=== PATIENT | male | born 1975 | race Caucasian/White ===

== ENCOUNTER 2020-01-12 13:04 | Day surgery (SDC) | payer OTHER, SELFPAY ==
[2020-01-01 08:09] VITALS: BMI 31.4
[2020-01-12] VITALS (10 sets, daily range): BP systolic 98–126; BP diastolic 58–84; PULSE 89–98; RESP 10–20; TEMP 36.2; O2SAT 92–98; BMI 30.7
[2020-01-12] MEDS: LACTATED RINGERS 1,000 ML 100 ML IV (14:53)
[2020-01-12] MEDS: CEFAZOLIN 2 GM/100 ML FROZ.PIGGY IV (16:41)
--- NOTE | 2020-01-12 16:41 | PM.PREOP ---
Pre-operative Note Interval Note History & Physical reviewed/Exam performed by Physician: Yes Changes to H&P: No
--- NOTE | 2020-01-12 17:03 | SUR.OPER ---
Supine on padded OR bed, head on pillow, arms secured on padded arm boards at <90 degrees abduction, legs uncrossed, safety belt at thigh, gel pad under heels.
[2020-01-12] MEDS: BUPIVACAINE 0.5% (PF) VIAL 30 ML INJ (17:07)
--- NOTE | 2020-01-12 18:59 | PM.OP.1 ---
Operative Date/Time/Diagnoses Date of procedure: 01/12/20 Time of procedure: 19:00 Pre-op diagnosis: Bilateral inguinal hernias reducible Post-op diagnosis: same ( direct hernias) Procedure & Clinicians Procedure: bilateral repair with plug and patch technique Same procedure as scheduled: Yes Indications: patient with a symptomatic left inguinal hernia found also have a right inguinal hernia brought in for repair Surgeon: Anastacio Rivera Anesthesia Type: General Operative Notes Findings: very large hernia on the left side but both sides essentially had a floor that was blown out with preperitoneal fat sliding through. There was no evidence of an indirect hernia on either side. Closure Type: primary Specimen(s): none sent Prosthetic devices, grafts, tissues, transplants, or devices: Mesh Estimated Blood Loss (mL): 10 Blood products transfused: none Procedure in detail: the patient was placed supine on the operating room table and underwent general LMA anesthesia. He was prepped and draped in the usual fashion. Local anesthetic was infiltrated in the left groin overlying the internal ring. Transverse incision is made and carried down level the external oblique. The external oblique was opened parallel with its fibers through the external ring. Cord structures were elevated. The floor was markedly attenuated and essentially gone with preperitoneal fat protruding up. I opened the cremaster proximally and could identify no indirect sac. It was closed with a 3 0 Vicryl. The floor was opened and the preperitoneal fat reduced off of the thinned out layer. Large plug was placed in the defect and tacked into place with interrupted 0 Ethibond suture. I closed the floor over this eliminating the thinned out redundant tissue. This was done with Ethibond suture suturing the medial transversalis to the ileopubic tract. A patch was then placed across the floor and tacked at the pubic tubercle, the posterior lamella the anterior rectus sheath, the ileo inguinal ligament and superior and lateral the cord. The opening was enlarged slightly to allow the mesh to lay flat and not constrict the cord. The external oblique was closed with a running 3 0 Vicryl. The subcu was closed with interrupted 3 0 Vicryl and the skin was closed running 4 0 Vicryl subcuticular stitch and Steri-Strips. A mirror incision was made and a essentially the same operation was performed on the opposite side. The only difference is were that there was scarring overlying the external oblique which was somewhat odd. The hernia on the right though slightly smaller still consisted of a blown out floor allowing preperitoneal fat pushed through. A large plug was used on the right side as well. The repair was done in the same way with the same materials and the closure was in an identical fashion. The patient had Mastisol Steri-Strips and dressings applied. His testes were pulled back down and he was extubated and taken to recovery area in good condition. Complications: none Post-operative Condition: stable Disposition: PACU
[2020-01-12] MEDS: fentaNYL 100 MCG/2 ML INJ IV ×2 (19:14→19:41)
[2020-01-12] MEDS: hydrOXYzine 50 MG/ML INJ 25 MG IM (19:15)
[2020-01-12] MEDS: ONDANSETRON 4 MG/2 ML INJ IV (19:15)
--- NOTE | 2020-01-12 19:28 | SUR.PHASEI ---
Assumed care. VS stable. Dressings CDI
[2020-01-12] MEDS: OXYCODONE/ACETAMINOPHEN 5/325 TABLET 1 TAB PO ×2 (19:31→20:06)
== END 2020-01-12 20:27 | disposition home or self-care (01) ==
PROVIDERS: PCP Family Medicine; Referring Provider Family Medicine; Visit Provider Specialist
PROC: (CPT 49505; principal; 2020-01-12 14:00)
DX: K40.20 Bilateral inguinal hernia, without obstruction or gangrene, not specified as recurrent (principal); I10 Essential (primary) hypertension; R73.03 Prediabetes; F17.210 Nicotine dependence, cigarettes, uncomplicated; E78.5 Hyperlipidemia, unspecified
CPT/HCPCS: 49505; C1781; J0690; J1100; J1170; J1885; J2250; J2405; J2704; J3010; J3410